=== PATIENT | male | born 1975 | race African-American/Black ===

== ENCOUNTER 2019-03-17 21:56 | Emergency (ER) | payer OTHER ==
[~2019-03-17] VITALS: Ht 172.7 cm; Wt 81.6 kg
[2019-03-17 22:12] VITALS: BP 132/69
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
== END 2019-03-17 23:04 | disposition home or self-care (01) ==
LOC: ER 21:56
DX: S13.8XXA Sprain of joints and ligaments of other parts of neck, initial encounter (principal); M54.5 Low back pain; V40.5XXA Car driver injured in collision with pedestrian or animal in traffic accident, initial encounter; Y93.89 Activity, other specified; Y92.410 Unspecified street and highway as the place of occurrence of the external cause; Y99.8 Other external cause status
CPT/HCPCS: 99281; 99283